=== PATIENT | male | born 1940 | race Caucasian/White ===

== ENCOUNTER → 2016-11-17 | Outpatient (CLI) | payer MEDICARE, OTHER | END | disposition home or self-care (01) | LOC: CDC 10:39 | DX: R94.31 Abnormal electrocardiogram [ECG] [EKG] (principal); G56.01 Carpal tunnel syndrome, right upper limb; G56.21 Lesion of ulnar nerve, right upper limb; M19.041 Primary osteoarthritis, right hand | CPT/HCPCS: 93000 ==